=== PATIENT | female | born 1950 | race Caucasian/White ===

== ENCOUNTER → 2017-06-16 | Day surgery (SDC) | payer MEDICARE ==
[~2017-06-16] MED LIST: ACETAMINOPHEN 1000 MG/100 ML 100 ML IV ONE; AMIT25TA20 PO; BUPIVACAINE/EPINEPHRINE 0.5% 50 ML VIAL ONE; GLEE400T2 PO; IBUP-238 PO; LACTATED RINGER'S 1000 ML INJ 1,000 ML ONE; LIDOCAINE 1%/EPINEPHrine 1:200,000 PF SOLN 30 ML VIAL ONE; LOVA1TAB47 PO; MIDAZOLAM HCL 2 MG/2 ML VIAL ONE; ONDANSETRON HCL 4 MG/2 ML VIAL IV PUSH ONE; PROPOFOL 100 MG/10 ML INJ IV ONE; TAB-TAB PO; VENL75XR PO; ceFAZolin 2 GM PREMIX 50 ML ONE
--- NOTE | 2017-06-16 12:37 | TN ---
cc: KIMBERLY BILLY MD DATE OF SURGERY: 06/16/2017 PREOPERATIVE DIAGNOSIS Right breast mass. POSTOPERATIVE DIAGNOSIS Right breast mass. PROCEDURE Needle-localized right breast biopsy. SURGEON Kimberly Billy MD VICE PRESIDENT OF HUMAN RESOURCES Staff. SPECIMENS Right breast mass. ESTIMATED BLOOD LOSS 20 ccs. ANESTHESIA General anesthesia. COMPLICATIONS None. INDICATIONS Mrs. Quevedo was noted to have abnormal mammogram findings of the right breast. This was followed up with ultrasound of the right breast including ultrasound-guided biopsy. The ultrasound guided biopsy results showed fatty necrosis which was felt to be possibly discordant with the findings. In addition, there was some question of whether she had one or two suspicious masses and therefore an MRI of the bilateral breast was performed. There was confirmed to be only one suspicious mass in the right breast. However, the mass did appear possibly discordant from the benign biopsy findings and therefore excisional biopsy was offered and the patient desired to proceed with excisional biopsy. She had ultrasound guided needle localization today prior to the procedure. PROCEDURE IN DETAIL The patient was taken to the operating room, placed in supine position. General anesthesia was induced. The right breast was prepped and draped in usual sterile fashion and a surgical time-out was performed to verify correct patient, procedure and site. After infiltration with local anesthetic, curvilinear incision was made in the superior border of the areola. Dissection was carried out down to subcutaneous tissue. Using electrocautery and sharp dissection, dissection was carried out superiorly towards the wire localizing the breast mass at the 12 o'clock position 2 cm superior to the nipple. The wire was encountered and cut with the wire cutters. The mass at the portion of the richa on the wire was circumscribed approximately a 1 x 2 cm portion of breast tissue. This was removed and sent to radiology who confirmed that the suspicious mass was present in the biopsy. Hemostasis was then achieved in the cavity which was closed with deep dermal 3-0 Vicryl sutures and subcuticular 4-0 Monocryl as well as Dermabond. The patient tolerated the procedure well, was extubated and taken to PACU in stable condition. Kimberly Billy MD JPD/TLL /11:08 AM /12:20 PM
== END | disposition home or self-care (01) ==
LOC: ESDC 07:26
PROVIDERS: ATTEND Surgery
DX: N64.1 Fat necrosis of breast (principal)
CPT/HCPCS: 00400; 19125; 88305; J0131; J0690; J2250; J2405; J3010; J7120